=== PATIENT | male | born 1960 | race Caucasian/White ===

== ENCOUNTER 2019-03-28 07:50 | Inpatient (IN) | payer SELFPAY ==
[~2019-03-28] VITALS: Ht 185.4 cm; Wt 114.7 kg
[2019-03-28] MEDS ORDERED: SODIUM CHLORIDE FLUSH 10ML SYR IVF ONE (08:30)
[2019-03-28] MEDS ORDERED: SODIUM CHLORIDE 0.9% 1,000ML IVBOLUS ONE (08:30)
[2019-03-28] MEDS ORDERED: MORPHINE SULFATE 4 MG/ML, 1ML ONE ×2 (08:34→09:04)
[2019-03-28] MEDS: MORPHINE SULFATE 4 MG/ML, 1ML IVPush PRN ×2 (08:38→09:13)
[2019-03-28 08:50] LABS: BASOPHILS # (AUTO) 0.05 x10^3/uL (0-0.1); BASOPHILS % (AUTO) 0 % (0-1); EOSINOPHILS # (AUTO) 0.07 x10^3/uL (0-0.4); EOSINOPHILS % (AUTO) 1 % (1-7); LYMPHOCYTES # (AUTO) 2.37 x10^3/uL (1-3.4); LYMPHOCYTES % (AUTO) 18 % (22-44); MD NO; MEAN CORPUSCULAR HEMOGLOBIN 30.2 pg (27.5-34.5); MEAN CORPUSCULAR HGB CONC 33.7 g/dL (33.2-36.2); MEAN CORPUSCULAR VOLUME 89.6 fL (81-97); MONOCYTES # (AUTO) 1.19 x10^3/uL (0.2-0.8); MONOCYTES % (AUTO) 9 % (2-9); NEUTROPHILS # (AUTO) 9.25 x10^3/uL (1.8-6.8); NEUTROPHILS % (AUTO) 72 % (42-75); PLATELET COUNT 232 x10^3/uL (130-400); RED BLOOD COUNT 5.89 x10^6/uL (4.38-5.82); RED CELL DISTRIBUTION WIDTH 13.3 % (9.4-14.8)
[2019-03-28 09:00] LABS: ALANINE AMINOTRANSFERASE 37 U/L (12-78); ALBUMIN 3.2 g/dL (3.4-5.0); ANION GAP 12 mmol/L (5-15); CALCIUM 8.1 mg/dL (8.5-10.1); CHLORIDE 106 mmol/L (98-107); CREATININE 0.98 mg/dL (0.7-1.3)
[2019-03-28] MEDS ORDERED: ONDANSETRON 2MG/ML, 2ML IVPush PRN (09:00)
[2019-03-28 09:04] LABS: ALKALINE PHOSPHATASE 89 U/L (45-117); BILIRUBIN,TOTAL 0.5 mg/dL (0.2-1.0); TOTAL PROTEIN 6.9 g/dL (6.4-8.2); TROPONIN I < 0.015 ng/mL (0.000-0.045)
[2019-03-28 09:23] LABS: D-DIMER 0.23 ug/mlFEU (0.00-0.52); INTERNATIONAL NORMALIZED RATIO 0.99 (0.93-1.1); PROTHROMBIN TIME 10.5 Seconds (9.6-11.5)
[2019-03-28] MEDS ORDERED: LORazepam 2 MG/ML, 1ML ONE (11:45)
[2019-03-28] MEDS ORDERED: LORazepam 2 MG/ML, 1ML IVPush ONE (12:00)
[2019-03-28] MEDS ORDERED: GABAPENTIN 250 MG/5 ML ORAL SOL PO ONE (12:00)
[2019-03-28] MEDS ORDERED: OMNIPAQUE 350 MG/ML, 100ML BOTTLE ONE (12:10)
[2019-03-28] MEDS ORDERED: morphine SULFATE 10 MG/ML, 1ML IVPush PRN (14:00)
[2019-03-28] MEDS ORDERED: NICOTINE 14MG/24 HR PATCH.TD24 TD SCH (14:00)
[2019-03-28] MEDS ORDERED: ENOXAPARIN 40 MG/0.4 ML SQ SCH (14:00)
[2019-03-28] MEDS ORDERED: ACETAMINOPHEN 325 MG TABLET PO PRN (14:00)
[2019-03-28 14:12] LABS: ANION GAP 9 mmol/L (5-15); CALCIUM 8.7 mg/dL (8.5-10.1); CHLORIDE 109 mmol/L (98-107); CREATININE 0.72 mg/dL (0.7-1.3)
[2019-03-28 14:16] LABS: TROPONIN I < 0.015 ng/mL (0.000-0.045)
[2019-03-28] MEDS: SODIUM CHLORIDE 0.9% 1,000 ML IV SCH (14:19)
[2019-03-28 14:25] VITALS: BP 161/101
[2019-03-28 14:45] LABS: HCT (SEDRATE) 52.3 % (39.2-51.8)
[2019-03-28] MEDS ORDERED: LABETALOL 5MG/ML, 20ML IVPush ONE ×2 (15:00→15:30)
[2019-03-28] MEDS ORDERED: LABETALOL 20 MG/4 ML IVPush ONE (15:00)
[2019-03-28 15:12] LABS: ACETONE, SERUM Trace (10mg/dL) mg/dL (Negative)
[2019-03-28] MEDS ORDERED: GADOTERATE 10 MMOL/20 ML VIAL ONE (16:11)
[2019-03-28 17:29] VITALS: BP 128/71
[2019-03-28] MEDS ORDERED: VANCOMYCIN PER PHARMACY MC PRN (17:30)
[2019-03-28 17:31] VITALS: BP 158/92
[2019-03-28] MEDS ORDERED: PHARMACOKINETIC MONITORING MC PRN (18:00)
[2019-03-28] MEDS: PIPERACILLIN/TAZO/PMX 3.375GM 50 ML IV SCH (18:08)
[2019-03-28] MEDS: INSULIN LISPRO 100 UNITS/ML, PEN SQ-INSULIN SCH ×2 (18:09→21:46)
[2019-03-28] MEDS: VANCOMYCIN 2,000 MG in SODIUM CHLORIDE 0.9% 500 ML IV SCH (18:43)
[2019-03-28 18:51] VITALS: BP 155/88
[2019-03-28 19:01] LABS: TROPONIN I < 0.015 ng/mL (0.000-0.045)
[2019-03-28] MEDS ORDERED: ENALAPRIL 5MG TABLET ONE (20:35)
[2019-03-28 21:13] LABS: MICROSCOPIC NOT IND
[2019-03-28 21:15] LABS: CULTURE INDICATED? NO
[2019-03-28 21:26] LABS: AMPHETAMINE SCREEN, URINE Negative (Negative); BARBITURATE SCREEN, URINE Negative (Negative); BENZODIAZEPINE SCREEN, URINE Negative (Negative); CANNABINOID SCREEN, URINE Negative (Negative); COCAINE SCREEN, URINE Negative (Negative); METHADONE SCREEN, URINE Negative (Negative); OPIATE SCREEN, URINE Positive (Negative)
[2019-03-28] MEDS: GABAPENTIN 100 MG CAPSULE PO SCH (21:45)
[2019-03-28] MEDS: ENALAPRIL 2.5MG TABLET PO SCH (21:46)
[2019-03-29] MEDS: PIPERACILLIN/TAZO/PMX 3.375GM 50 ML IV SCH ×3 (00:02→11:41)
[2019-03-29 01:06] VITALS: BP 149/82
[2019-03-29] MEDS: SODIUM CHLORIDE 0.9% 1,000 ML IV SCH (03:45)
[2019-03-29 05:04] LABS: BASOPHILS # (AUTO) 0.04 x10^3/uL (0-0.1); BASOPHILS % (AUTO) 0 % (0-1); EOSINOPHILS # (AUTO) 0.22 x10^3/uL (0-0.4); EOSINOPHILS % (AUTO) 2 % (1-7); LYMPHOCYTES # (AUTO) 2.56 x10^3/uL (1-3.4); LYMPHOCYTES % (AUTO) 29 % (22-44); MD NO; MEAN CORPUSCULAR HEMOGLOBIN 30.1 pg (27.5-34.5); MEAN CORPUSCULAR HGB CONC 33.9 g/dL (33.2-36.2); MEAN CORPUSCULAR VOLUME 88.8 fL (81-97); MEAN PLATELET VOLUME 9.7 fL (7.4-10.4); MONOCYTES # (AUTO) 0.89 x10^3/uL (0.2-0.8); MONOCYTES % (AUTO) 10 % (2-9); NEUTROPHILS # (AUTO) 5.28 x10^3/uL (1.8-6.8); NEUTROPHILS % (AUTO) 59 % (42-75); PLATELET COUNT 208 x10^3/uL (130-400); RED BLOOD COUNT 5.16 x10^6/uL (4.38-5.82); RED CELL DISTRIBUTION WIDTH 13.5 % (9.4-14.8)
[2019-03-29 05:09] LABS: ALBUMIN 2.7 g/dL (3.4-5.0); ANION GAP 9 mmol/L (5-15); CALCIUM 7.8 mg/dL (8.5-10.1); CHLORIDE 108 mmol/L (98-107)
[2019-03-29 05:21] LABS: ALANINE AMINOTRANSFERASE 32 U/L (12-78); ALKALINE PHOSPHATASE 71 U/L (45-117); BILIRUBIN,TOTAL 0.6 mg/dL (0.2-1.0); CHOL/HDL RATIO 7.9; CHOLESTEROL, TOTAL 142 mg/dL (140-239); CREATININE 0.83 mg/dL (0.7-1.3); HDL CHOL % 13 % (26-37); HDL CHOLESTEROL (DIRECT) 18 mg/dL (40-60); LDL CHOLESTEROL,CALCULATED 64 mg/dL (54-169); LDL/HDL RATIO 3.6 (0.5-3.0); TOTAL PROTEIN 5.6 g/dL (6.4-8.2); TRIGLYCERIDES 300 mg/dL (50-200); VLDL CHOLESTEROL 60 mg/dL (0-25)
[2019-03-29] MEDS: KETOROLAC 30 MG/1 ML IV PRN ×2 (05:28→12:57)
[2019-03-29 08:04] VITALS: BP 155/91
[2019-03-29] MEDS: GABAPENTIN 100 MG CAPSULE PO SCH (08:48)
[2019-03-29] MEDS: ENALAPRIL 2.5MG TABLET PO SCH (08:49)
[2019-03-29] MEDS: INSULIN LISPRO 100 UNITS/ML, PEN SQ-INSULIN SCH ×2 (08:49→11:43)
[2019-03-29] MEDS: VANCOMYCIN 2,000 MG in SODIUM CHLORIDE 0.9% 500 ML IV SCH (12:52)
[2019-03-29] MEDS ORDERED: predniSONE 50MG TABLET PO SCH (14:30)
== END 2019-03-29 15:00 | disposition left against medical advice (07) | DRG 552 ==
LOC: ED 11:42 → EDIP 12:36 → 4WST 13:54
PROVIDERS: ADMIT Internal Medicine; ATTEND Family Medicine
DX: M54.9 Dorsalgia, unspecified (principal); F10.239 Alcohol dependence with withdrawal, unspecified; E87.2 Acidosis; D72.829 Elevated white blood cell count, unspecified; E66.9 Obesity, unspecified; E11.65 Type 2 diabetes mellitus with hyperglycemia; F17.200 Nicotine dependence, unspecified, uncomplicated; Z53.29 Procedure and treatment not carried out because of patient's decision for other reasons; I10 Essential (primary) hypertension; G89.29 Other chronic pain; Z68.33 Body mass index [BMI] 33.0-33.9, adult
CPT/HCPCS: 36415; 71045; 71275; 72128; 72157; 80048; 80053; 80061; 80307; 81003; 82010; 82962; 83036; 83605; 84145; 84443; 84484; 85025; 85379; 85610; 85651; 85730; 86140; 87040; 93005; 93306; 96361; 96374; G0378; J1650; J1885; J2543; J3370; Q9967; A9575; J1815; J2060; J2270; J7030; J7040